=== PATIENT | female | born 1970 | race Caucasian/White ===

== ENCOUNTER 2021-11-27 22:41 | Emergency (ER) | payer BC ==
[~2021-11-27] VITALS: Ht 165.1 cm; Wt 76.2 kg
[2021-11-27 22:47] VITALS: BP_SYST 151
--- NOTE | 2021-11-27 22:49 | NUR ---
PATIENT WAS PLAYING WITH SON WHEN SHE FELL ON LEFT WRIST, OBVIOUS DEFORMITY TO LEFT WRIST.
--- NOTE | 2021-11-27 22:51 | NUR ---
PATIENT TO BED 7 WITH PILLOWS PLACED FOR COMFORT, REPORT GIVEN TO SONJA BOYCE
--- NOTE | 2021-11-27 22:53 | NUR ---
Recieved pt AAOx4, skin w/d to touch, Left wrist w/ edema, decreased ROM, pain 10/10, guarded to touch, and w/ active ROM movement. S.O. at bedside. Pending MD lees.
[2021-11-27] MEDS ORDERED: MORPHINE 4 MG INJ. 4 MG/ML VIAL IM ONE (23:15)
[2021-11-27] MEDS ORDERED: KETOROLAC TROMETHAMINE 60 MG/2 ML VIAL IM ONE (23:15)
[2021-11-28] MEDS ORDERED: HYDR-3917 PO (00:21)
[2021-11-28 00:50] VITALS: BP_SYST 132
--- NOTE | 2021-11-28 00:50 | NUR ---
Patient given written and verbal discharge instructions and verbalizes understanding. ER MD discussed with patient the results and treatment provided. Patient in stable condition. ID arm band removed. Rx of [place] 5/325 given. Patient educated on pain management and to follow up with PMD. Pain Scale 2/10. Opportunity for questions provided and answered.
== END 2021-11-28 00:50 | disposition home or self-care (01) ==
LOC: SED 22:41
DX: S62.102A Fracture of unspecified carpal bone, left wrist, initial encounter for closed fracture (principal); M25.532 Pain in left wrist; Z79.899 Other long term (current) drug therapy; W01.0XXA Fall on same level from slipping, tripping and stumbling without subsequent striking against object, initial encounter; Y93.89 Activity, other specified; Y92.89 Other specified places as the place of occurrence of the external cause; Y99.8 Other external cause status
CPT/HCPCS: 99284; 73110; 29125; 96372; J1885; J2270